=== PATIENT | female | born 1990 | race Caucasian/White ===

== ENCOUNTER 2019-08-13 13:57 | Emergency (ER) | payer MEDICAID ==
[~2019-08-13] VITALS: Ht 160 cm; Wt 93.1 kg
[2019-08-13 15:57] LABS: BASOPHILS % 0.3 % (0.0-2.0); EOSINOPHILS % 0.1 % (0.0-5.0); HEMATOCRIT. 44.1 % (36.0-48.0); HEMOGLOBIN. 15.1 g/dL (12.0-16.0); MEAN CORPUSCULAR HEMOGLOBIN 30.5 pg (28.0-32.0); MEAN CORPUSCULAR VOLUME 88.7 fL (81.0-99.0); MEAN PLATELET VOLUME 9.4 fl (7.4-10.4); NEUTROPHILS % 59.6 % (40.0-76.0); PLATELET 152 x1000/uL (130-400); RED BLOOD CELL COUNT 4.97 mill/uL (4.2-5.4); RED CELL DISTRIBUTION WIDTH 13.2 % (11.6-14.6)
[2019-08-13 15:59] LABS: CHLORIDE 104 mEq/L (98-107)
[2019-08-13 16:05] LABS: CLARITY URINE CLEAR (CLEAR); COLOR URINE YELLOW (YELLOW); KETONES URINE 4+ (NEGATIVE); LEUKOCYTE ESTERASE URINE NEGATIVE (NEGATIVE); NITRITE URINE NEGATIVE (NEGATIVE); OCCULT BLOOD URINE NEGATIVE (NEGATIVE); PROTEIN URINE NEGATIVE (NEGATIVE); SPECIFIC GRAVITY URINE 1.023 (1.005-1.030); UROBILINOGEN URINE 0.2 E.U./dL (0.2-1.0)
[2019-08-13 16:13] LABS: HCG SCREEN POSITIVE
[2019-08-13 23:30] VITALS: BP 115/66
== END 2019-08-13 23:32 | disposition home or self-care (01) ==
LOC: ER 13:57
DX: O98.511 Other viral diseases complicating pregnancy, first trimester (principal); U07.1 COVID-19; O26.891 Other specified pregnancy related conditions, first trimester; B34.9 Viral infection, unspecified; Z3A.08 8 weeks gestation of pregnancy
CPT/HCPCS: 36415; 76805; 80053; 81003; 81025; 84702; 84703; 85025; 86850; 86900; 86901; 99284; C9803; U0003